=== PATIENT | male | born 1940 | race Caucasian/White ===

== ENCOUNTER → 2021-09-09 | Outpatient (CLI) | payer OTHER ==
[~2021-09-09] MED LIST: ASPI325 PO; ATOR10 PO; CEFU500T30 PO; IRON18 MG PO; LEVOTHYROXINE PO; NEBI5 PO; PANT20 PO; RAMI5 PO; SULTRIDS PO; THYR60 PO; VALACYCLOVIR1000 MG PO
== END | disposition home or self-care (01) ==
LOC: LAB SHORT 15:42 → LAB 15:42
DX: L03.032 Cellulitis of left toe (principal)
CPT/HCPCS: 87070; 87205

== ENCOUNTER 2021-09-24 07:16 | Day surgery (SDC) | payer OTHER ==
[~2021-09-24] VITALS: Ht 185.4 cm; Wt 89.2 kg
[~2021-09-24 07:16] MED LIST changes: +CEFU250T47 PO; +LINEZOLID PO; +[UNRECOGNIZED DRUG - OTHER] PO
--- NOTE | 2021-09-24 07:47 | NUR ---
PT ADMITTED TO [facility]. AGREES WITH PLANNED SURGERY. LUNG SOUNDS CLEAR.
--- NOTE | 2021-09-24 10:28 | NUR ---
PT TO DAY SURGERY FROM PACU I CONT CARE FROM PACU PT DENIES PAIN PO FLUIDS GIVEN NOTIFIED AND HEADING IN TO PICK PT UP FROM DAYSURGERY
--- NOTE | 2021-09-24 11:00 | NUR ---
Patient up to Ambulate independently. Gait steady. Discharge instructions reviewed with patient. Patient verbalizes understanding. Copy given to patient to take home. Patient States Post-Procedure ride home has been arranged. Discharged via wheelchair to private car for ride home.
== END 2021-09-24 22:43 | disposition home or self-care (01) ==
LOC: ORSCMMR 07:16 → ORD 09:00 → ORSCMMR 09:00
PROVIDERS: Surgery
PROC: 05HM33Z Insertion of Infusion Device into Right Internal Jugular Vein, Percutaneous Approach (ICD-10-PCS; principal; 2021-09-24 09:00)
PROC: B543ZZA Ultrasonography of Right Jugular Veins, Guidance (ICD-10-PCS; principal; 2021-09-24 09:00)
DX: C20 Malignant neoplasm of rectum (principal); I10 Essential (primary) hypertension; I25.10 Atherosclerotic heart disease of native coronary artery without angina pectoris; I25.2 Old myocardial infarction; E03.9 Hypothyroidism, unspecified; Z79.899 Other long term (current) drug therapy; Z87.891 Personal history of nicotine dependence
CPT/HCPCS: 77001; C1788; J0690; J1100; J1642; J2405; J2704; J3010; J7120

== ENCOUNTER → 2021-10-06 | Outpatient (CLI) | payer OTHER ==
[2021-10-06 10:16] LABS: CHOL/HDL RATIO 2.1; Cholesterol 107 mg/dL (50-200); HDL Cholesterol 52 mg/dL (>39); LDL/HDL RATIO 0.8; Low Density Lipoprotein Chol 44 mg/dL (0-110); Triglycerides 55 mg/dL (30-160); Very Low Density Lipoprot Chol 11 mg/dL (6-32)
== END ==
LOC: LAB 09:06 → LAB SHORT 09:06
PROVIDERS: Nurse Practitioner Family
DX: E03.8 Other specified hypothyroidism (principal); E06.3 Autoimmune thyroiditis; Z00.00 Encounter for general adult medical examination without abnormal findings; E78.5 Hyperlipidemia, unspecified
CPT/HCPCS: 36415; 80061; 83036; 84443

== ENCOUNTER → 2022-05-21 | Outpatient (CLI) | payer MEDICARE, OTHER | LOC: LAB SHORT 09:31 → LAB 09:31 | DX: L08.9 Local infection of the skin and subcutaneous tissue, unspecified (principal) | CPT/HCPCS: 87070; 87075; 87205 ==

== ENCOUNTER 2022-06-26 06:37 | Day surgery (SDC) | payer MEDICARE, OTHER ==
[~2022-06-26] VITALS: Ht 190.5 cm; Wt 85.8 kg
[2022-06-26] MEDS ORDERED: FERSU300 (06:59)
[2022-06-26] MEDS ORDERED: METF500 (06:59)
[2022-06-26] MEDS ORDERED: Areds 2 (07:00)
== END 2022-06-26 09:12 | disposition home or self-care (01) ==
LOC: ORSCSDS 06:37
PROVIDERS: Internal Medicine Gastroenterology
PROC: 0DBP8ZX Excision of Rectum, Via Natural or Artificial Opening Endoscopic, Diagnostic (ICD-10-PCS; principal; 2022-06-26 08:00)
DX: C18.2 Malignant neoplasm of ascending colon (principal); R73.03 Prediabetes; Z79.899 Other long term (current) drug therapy
CPT/HCPCS: 82947; 88305; J2704; J7120

== ENCOUNTER 2022-07-26 06:54 | Day surgery (SDC) | payer MEDICARE, OTHER ==
[~2022-07-26] VITALS: Ht 190.5 cm; Wt 85.4 kg
[~2022-07-26 06:54] MED LIST changes: +Areds 2; +FERSU300; +METF500
== END 2022-07-26 10:23 | disposition home or self-care (01) ==
LOC: ORSCSDS 06:54
PROVIDERS: Internal Medicine Gastroenterology
PROC: 0DBL8ZX Excision of Transverse Colon, Via Natural or Artificial Opening Endoscopic, Diagnostic (ICD-10-PCS; principal; 2022-07-26 08:00)
DX: Z85.048 Personal history of other malignant neoplasm of rectum, rectosigmoid junction, and anus (principal); D12.3 Benign neoplasm of transverse colon; Z87.891 Personal history of nicotine dependence; Z79.899 Other long term (current) drug therapy
CPT/HCPCS: 82947; 88305; J2704; J7120

== ENCOUNTER → 2023-05-29 | Outpatient (CLI) | payer MEDICARE, OTHER ==
[2023-05-29 12:27] LABS: Source, Urine Clean Catch
[2023-05-29 15:55] LABS: Appearance, Urine Clear (Clear); Bilirubin, Urine Neg (Neg); Blood, Urine Neg (Neg); Color, Urine Yellow (P-Yellow); Glucose Qualitative, Urine Neg (Neg); Ketones, Urine Neg (Neg); Leukocyte Esterase, Urine 1+ (Neg); Nitrite, Urine Neg (Neg); Protein, Urine Neg (Neg); Specific Gravity, Urine 1.015 (1.003-1.022); Urobilinogen, Urine NORM (Normal)
[2023-05-29 16:22] LABS: Bacteria Few /hpf; Mucus Light (0-Heavy); Red Blood Cells, Urine 0-2 /hpf (0-2); Squamous Epithelial Cells Few /hpf (Few)
== END | disposition home or self-care (01) ==
LOC: LAB 11:20 → LAB SHORT 11:20
PROVIDERS: Nurse Practitioner Family
DX: R42 Dizziness and giddiness (principal)
CPT/HCPCS: 81001; 87086